=== PATIENT | female | born 1950 | race Caucasian/White ===

== ENCOUNTER 2020-12-29 06:36 | Day surgery (SDC) | payer MEDICARE ==
[~2020-12-29] VITALS: Ht 165.1 cm; Wt 88.3 kg
[2020-12-29] VITALS (18 sets, daily range): BP systolic 99–176; BP diastolic 52–97
[2020-12-29] MEDS ORDERED: NAPR220T67 PO (07:54)
[2020-12-29] MEDS ORDERED: normal saline 1000ml 1,000 ML IV SCH (08:30)
[2020-12-29] MEDS ORDERED: fentaNYL/PF 50MCG/1 ML 2ML syringe ONE (08:36)
[2020-12-29] MEDS ORDERED: midazolam 1 mg/ML 2ml injection ONE (08:36)
[2020-12-29] MEDS ORDERED: gelatin sponge, absorbable (Gelfoam 12-7MM) sponge TP ONE (09:26)
== END 2020-12-29 12:16 | disposition home or self-care (01) ==
LOC: SSTAY O 06:36
PROVIDERS: ATTEND Radiology Diagnostic Radiology
DX: G95.89 Other specified diseases of spinal cord (principal); C90.00 Multiple myeloma not having achieved remission; Z85.3 Personal history of malignant neoplasm of breast; Z85.820 Personal history of malignant melanoma of skin; Z88.5 Allergy status to narcotic agent; Z88.8 Allergy status to other drugs, medicaments and biological substances; Z79.899 Other long term (current) drug therapy
CPT/HCPCS: 20225; 77012; 99152; 99153; J2250; J3010; J7030; 88305; 88341; 88342